=== PATIENT | male | born 1955 | race Caucasian/White ===

== ENCOUNTER 2016-12-06 18:05 | Emergency (ER) | payer OTHER ==
[~2016-12-06] VITALS: Ht 195.6 cm; Wt 113.6 kg
[~2016-12-06 18:05] MED LIST: ACETAMINOPHN-T1 EACH PO; CLARITIN,ALAVAR10 MG PO; CLARITIN10 M3 PO; CLARITIN10 MG PO; COUMADIN1 MG PO; COUMADIN5 MG PO; COUMADIN7.5 MG PO; CRESTOR40 MG PO; CYMBALTA30 MG PO; Claritin,Alavart PO; Coumadin Protocol PO; DILAUDID2 MG PO; DOCUSATE SODIU100 MG PO; DULOXETINE HCL30 MG PO; FENOFIBRATE160 M1 PO; FLONASE16 G1 BOTH NARES; Feosol PO; Fioricet,Esgic,Repan PO; IRON325 M1 PO; LASIX; LIPITOR20 MG PO; LOVENOX100 MG/1 M SC; LOVENOX40 MG/0.4 SC; Lovenox SC; OSTEO BI-FLEX1 EAC1 PO; OTC ALLERGY MED; OXYCODONE HCL5 MG PO; PERCOCET 5/31 TABLET PO; Percocet 5/325,Endoc PO; ROXICODONE5 MG PO; TAMSULOSIN HCL0.4 MG PO; TRAMADOL HCL50 MG PO; TYLENOL EXTRA500 MG PO; TYLENOL WITH C1 EACH PO; URIBEL CAPSULE1 EACH PO; WARFARIN SODIU7.5 MG PO; WARFARIN SODIUM10 MG PO; WARFARIN SODIUM2 MG PO; WARFARIN SODIUM5 MG PO; XARELTO20 MG PO; ZETIA10 MG PO; ZYRTEC10 M2 PO
[2016-12-06 18:40] LABS: HEMATOCRIT 40.6 % (38.0-50.0); MCH 29.9 PG (29.0-34.0); MCHC 34.7 G/DL (30.0-36.0); MEAN PLAT.VOLUME 9.8 uM^3 (9.0-12.4); PLATELET COUNT 299 K/uL (156-360); RBC DIS.WIDTH-CV 13.2 % (11.8-14.6); RBC DIS.WIDTH-SD 40.8 % (39-53); RED BLOOD COUNT 4.72 M/uL (4.00-5.50); WHITE BLOOD COUNT 5.7 K/uL (4.1-10.2)
[2016-12-06 19:03] LABS: CHLORIDE 108 mEq/L (99-109); POTASSIUM 3.9 mEq/L (3.7-5.4); SODIUM 139 mEq/L (136-147)
[2016-12-06 19:05] LABS: GLUCOSE 113 mg/dL (70-99); TROP-I INTERPRETATION NEGATIVE; TROPONIN-I < 0.01 ng/mL (0.0-0.30)
[2016-12-06 19:06] LABS: ANION GAP 12 MEQ/L (2-14)
[2016-12-06 19:08] LABS: GFR ESTIMATE (CALCULATED) > 59 mL/min/
[2016-12-06 19:09] LABS: UREA NITROGEN (BUN) 13 mg/dL (9-23)
[2016-12-06 21:33] LABS: TROP-I INTERPRETATION NEGATIVE; TROPONIN-I < 0.01 ng/mL (0.0-0.30)
[2016-12-06 22:35] VITALS: BP 129/73
== END 2016-12-06 22:36 | disposition home or self-care (01) ==
LOC: EME 18:05
PROVIDERS: Emergency Medicine
DX: R07.9 Chest pain, unspecified (principal); I71.2 Thoracic aortic aneurysm, without rupture; M54.5 Low back pain; Z73.3 Stress, not elsewhere classified; R05 Cough; R06.02 Shortness of breath; R11.0 Nausea; D68.51 Activated protein C resistance; E78.5 Hyperlipidemia, unspecified; Z79.01 Long term (current) use of anticoagulants; Z87.442 Personal history of urinary calculi
CPT/HCPCS: 71020; 71275; 80048; 84484; 85027; 93005; 99281; 99285; J7030

== ENCOUNTER 2017-03-27 09:03 | Emergency (ER) | payer OTHER ==
[~2017-03-27] VITALS: Ht 198.1 cm; Wt 116.8 kg
[2017-03-27 12:29] VITALS: BP 121/67
== END 2017-03-27 12:29 | disposition home or self-care (01) ==
LOC: EME 09:03
DX: M25.552 Pain in left hip (principal); M79.605 Pain in left leg; Z86.718 Personal history of other venous thrombosis and embolism; E78.5 Hyperlipidemia, unspecified; G43.909 Migraine, unspecified, not intractable, without status migrainosus; Z86.73 Personal history of transient ischemic attack (TIA), and cerebral infarction without residual deficits; Z96.641 Presence of right artificial hip joint; D68.2 Hereditary deficiency of other clotting factors; Z79.01 Long term (current) use of anticoagulants
CPT/HCPCS: 73502; 93971; 99281; 99284

== ENCOUNTER 2017-07-19 13:32 | Inpatient (IN) | payer OTHER ==
[~2017-07-19] VITALS: Ht 195.6 cm; Wt 166.3 kg
[2017-07-19 18:47] LABS: HEMATOCRIT 41.6 % (38.0-50.0); MCH 29.8 PG (29.0-34.0); MCHC 33.4 G/DL (30.0-36.0); MCV 89.1 FL (86-99); MEAN PLAT.VOLUME 9.6 uM^3 (9.0-12.4); PLATELET COUNT 256 K/uL (156-360); RBC DIS.WIDTH-CV 13.1 % (11.8-14.6); RBC DIS.WIDTH-SD 42.7 % (39-53); RED BLOOD COUNT 4.67 M/uL (4.00-5.50); WHITE BLOOD COUNT 11.1 K/uL (4.1-10.2)
[2017-07-19 18:56] LABS: INTER. NORMALIZED RATIO 1.8; PROTHROMBIN TIME 20.6 SEC (10.2-12.9)
[2017-07-19 18:59] LABS: CHLORIDE 107 mEq/L (99-109); POTASSIUM 4.4 mEq/L (3.7-5.4); PTT 38.4 SEC (25-37); SODIUM 139 mEq/L (136-147)
[2017-07-19 19:01] LABS: GLUCOSE 103 mg/dL (70-99)
[2017-07-19 19:02] LABS: ANION GAP 11 MEQ/L (2-14)
[2017-07-19 19:05] LABS: GFR ESTIMATE (CALCULATED) > 59 mL/min/
[2017-07-19 19:06] LABS: UREA NITROGEN (BUN) 12 mg/dL (9-23)
[2017-07-19 19:11] LABS: TROP-I INTERPRETATION NEGATIVE; TROPONIN-I < 0.01 ng/mL (0.0-0.30)
[2017-07-19] MEDS ORDERED: ICY HOT PATCH1 PATCH TD (20:32)
[2017-07-19] MEDS ORDERED: VENTOLIN HFA18 GM IH (20:33)
[2017-07-19] MEDS ORDERED: AMOXICILLIN500 MG PO (20:34)
[2017-07-19 22:02] LABS: TOTAL BILIRUBIN 0.6 mg/dL (0.0-1.0)
[2017-07-19 22:03] LABS: ALKALINE PHOSPHATASE 62 IU/L (3-129)
[2017-07-19 22:06] LABS: DIRECT BILIRUBIN 0.3 mg/dL (0.0-0.3)
[2017-07-19 22:42] LABS: Estimated Average Glucose 120 mg/dL (70-123); HEMOGLOBIN A1c (GLYCOHEMOGLOB) 5.8 % HGB (Below 5.7)
[2017-07-19 23:25] LABS: HDL CHOLESTEROL 31 MG/DL (Desirable>=40); LDL CHOLESTEROL 99 mg/dL (Desirable<100); NON-HDL CHOLESTEROL 116 mg/dL (Desirable<160); TOTAL CHOLESTEROL 147 mg/dL (Desirable<200); TRIGLYCERIDES 86 MG/DL (Normal: <150)
[2017-07-19 23:31] VITALS: BP 129/64
[2017-07-20 01:37] LABS: TROP-I INTERPRETATION NEGATIVE; TROPONIN-I < 0.01 ng/mL (0.0-0.30)
[2017-07-20 03:09] LABS: ADD MIUA? YES; BILIRUBIN NEGATIVE; BLOOD MODERATE; COLOR YELLOW ((YELLOW)); GLUCOSE (STRIP) NEGATIVE; KETONES NEGATIVE; LEUKOCYTES NEGATIVE; NITRITE NEGATIVE; PROTEIN (STRIP) NEGATIVE; SPECIFIC GRAVITY 1.024 (1.000-1.030); UROBILINOGEN 0.2 MG/DL (0.2-1.0)
[2017-07-20 03:11] LABS: INFLUENZA A VIRAL ANTIGEN NEGATIVE; INFLUENZA B VIRAL ANTIGEN NEGATIVE
[2017-07-20 03:19] LABS: BACTERIA NONE SEEN /HPF; EPITHELIAL CELLS NONE SEEN /HPF; MUCUS TRACE /LPF; RED BLOOD CELLS 0-5 /HPF (0-5); WHITE BLOOD CELLS 0-5 /HPF (0-5)
[2017-07-20 04:36] VITALS: BP 128/73
[2017-07-20 05:16] LABS: HEMATOCRIT 37.1 % (38.0-50.0); MCH 30.1 PG (29.0-34.0); MCHC 33.2 G/DL (30.0-36.0); MCV 90.7 FL (86-99); MEAN PLAT.VOLUME 9.5 uM^3 (9.0-12.4); PLATELET COUNT 221 K/uL (156-360); RBC DIS.WIDTH-CV 13.2 % (11.8-14.6); RBC DIS.WIDTH-SD 44.1 % (39-53); RED BLOOD COUNT 4.09 M/uL (4.00-5.50); WHITE BLOOD COUNT 9.8 K/uL (4.1-10.2)
[2017-07-20 05:45] LABS: ALKALINE PHOSPHATASE 43 IU/L (3-129); ANION GAP 10 MEQ/L (2-14); CHLORIDE 106 MEQ/L (99-109); GFR ESTIMATE (CALCULATED) > 59 mL/min/; GLUCOSE 99 mg/dL (70-99); POTASSIUM 4.4 MEQ/L (3.7-5.4); SAMPLE HEMOLYSIS CHECK 0; SAMPLE ICTERIC CHECK 0; SAMPLE LIPEMIA CHECK 0; SODIUM 140 MEQ/L (136-147); TOTAL BILIRUBIN 0.7 MG/DL (0.0-1.0); UREA NITROGEN (BUN) 16 mg/dL (9-23)
[2017-07-20 05:54] LABS: TROP-I INTERPRETATION NEGATIVE; TROPONIN-I < 0.01 ng/mL (0.0-0.30)
[2017-07-20 07:48] VITALS: BP 147/71
[2017-07-20 11:01] VITALS: BP 153/73
[2017-07-20 12:52] VITALS: BP 145/71
[2017-07-20 12:59] LABS: LYME DISEASE SEROLOGY SCREEN NEGATIVE (NEGATIVE)
[2017-07-20 16:02] VITALS: BP 151/68
[2017-07-20 19:10] VITALS: BP 125/78
[2017-07-20 19:46] LABS: HEMATOCRIT 37.5 % (38.0-50.0); MCHC 33.9 G/DL (30.0-36.0); MCV 88.4 FL (86-99); PLATELET COUNT 243 K/uL (156-360); RBC DIS.WIDTH-CV 13.2 % (11.8-14.6); RBC DIS.WIDTH-SD 42.3 % (39-53); RED BLOOD COUNT 4.24 M/uL (4.00-5.50); WHITE BLOOD COUNT 11.8 K/uL (4.1-10.2)
[2017-07-20 19:51] LABS: CHLORIDE 105 mEq/L (99-109); POTASSIUM 3.8 mEq/L (3.7-5.4); SODIUM 136 mEq/L (136-147)
[2017-07-20 19:52] LABS: GLUCOSE 116 mg/dL (70-99)
[2017-07-20 19:54] LABS: ANION GAP 11 MEQ/L (2-14)
[2017-07-20 19:56] LABS: GFR ESTIMATE (CALCULATED) > 59 mL/min/
[2017-07-20 19:57] LABS: UREA NITROGEN (BUN) 14 mg/dL (9-23)
[2017-07-20 20:04] LABS: TROP-I INTERPRETATION NEGATIVE; TROPONIN-I < 0.01 ng/mL (0.0-0.30)
[2017-07-21] VITALS (8 sets, daily range): BP systolic 132–162; BP diastolic 65–85
[2017-07-21 06:11] LABS: HEMATOCRIT 36.1 % (38.0-50.0); MCH 29.6 PG (29.0-34.0); MCHC 32.7 G/DL (30.0-36.0); MCV 90.5 FL (86-99); MEAN PLAT.VOLUME 10.3 uM^3 (9.0-12.4); PLATELET COUNT 221 K/uL (156-360); RBC DIS.WIDTH-SD 43.3 % (39-53); RED BLOOD COUNT 3.99 M/uL (4.00-5.50); WHITE BLOOD COUNT 11.1 K/uL (4.1-10.2)
[2017-07-21 06:32] LABS: BASE EXCESS -2.2 mEq/L (-3 to +3); BICARBONATE 24.2 mEq/L (22-26); COMMENTS - BLOOD GASES C+; DEVICE NRBM; FI02 100 %; METHEMOGLOBIN 1.8 % (0-1.5); PCO2 47 mm Hg (35-45); PO2 159 mm Hg (80-100); SITE RR; pH 7.32 (7.35-7.45)
[2017-07-21 06:58] LABS: INTER. NORMALIZED RATIO 1.2; PROTHROMBIN TIME 13.4 SEC (10.2-12.9)
[2017-07-21 07:01] LABS: PTT 31.5 SEC (25-37)
[2017-07-21 08:22] LABS: METH RESISTANT S AUREUS PCR NEGATIVE (NEGATIVE)
[2017-07-21 08:29] LABS: PROBE CHECK PASS; SPECIMEN PROCESSING CONTROL PASS
== END 2017-07-21 13:00 | disposition short-term general hospital (02) | DRG 97 ==
LOC: EME 13:32 → EDOF 22:15 → 5WEST 22:15 → ENRESERV 22:16 → 5WEST 23:17 → 4WEST 07-20 10:28 → 5WEST 07-20 10:28 → 4EAST 07-20 10:28 → 5WEST 07-20 10:28 → CANRESERV 07-20 10:33 → ENRESERV 07-20 10:33 → 5WEST 07-20 13:24 → ENRESERV 07-20 13:32 → 4EAST 07-20 15:24 → ENRESERV 07-21 06:37 → 4WEST 07-21 06:45
PROVIDERS: Emergency Medicine; Hospitalist; Internal Medicine; Nurse Practitioner Adult Health; Specialist
PROC: 5A1935Z Respiratory Ventilation, Less than 24 Consecutive Hours (ICD-10-PCS; principal; 2017-07-21)
PROC: 0BH17EZ Insertion of Endotracheal Airway into Trachea, Via Natural or Artificial Opening (ICD-10-PCS; principal; 2017-07-21)
DX: G03.9 Meningitis, unspecified (principal); J96.01 Acute respiratory failure with hypoxia; D68.2 Hereditary deficiency of other clotting factors; R56.9 Unspecified convulsions; I71.2 Thoracic aortic aneurysm, without rupture; D68.59 Other primary thrombophilia; D68.51 Activated protein C resistance; G45.9 Transient cerebral ischemic attack, unspecified; R51 Headache; Z86.718 Personal history of other venous thrombosis and embolism; E78.5 Hyperlipidemia, unspecified; Z87.442 Personal history of urinary calculi; R47.81 Slurred speech; R25.3 Fasciculation; Z96.643 Presence of artificial hip joint, bilateral; R40.2430 Glasgow coma scale score 3-8, unspecified time; K57.30 Diverticulosis of large intestine without perforation or abscess without bleeding; N28.1 Cyst of kidney, acquired; I49.3 Ventricular premature depolarization; R32 Unspecified urinary incontinence; R27.0 Ataxia, unspecified; G43.909 Migraine, unspecified, not intractable, without status migrainosus; Z79.01 Long term (current) use of anticoagulants; R41.82 Altered mental status, unspecified; D71 Functional disorders of polymorphonuclear neutrophils; J45.909 Unspecified asthma, uncomplicated; K59.00 Constipation, unspecified; N20.0 Calculus of kidney; R33.9 Retention of urine, unspecified; Z68.33 Body mass index [BMI] 33.0-33.9, adult; Z79.899 Other long term (current) drug therapy; Z80.1 Family history of malignant neoplasm of trachea, bronchus and lung; Z80.7 Family history of other malignant neoplasms of lymphoid, hematopoietic and related tissues; Z86.73 Personal history of transient ischemic attack (TIA), and cerebral infarction without residual deficits; R50.9 Fever, unspecified
CPT/HCPCS: 36600; 70450; 70551; 71010; 74176; 80048; 80048 91; 80053; 80061; 80076; 80202; 81003; 82803; 82948; 83036; 83605; 83735; 84146; 84484; 85027; 85379; 85610; 85730; 86618; 87040; 87070; 87205; 87502; 87641; 87651 90; 89051; 93005; 93880; 94002; 99281; 99285; G0378; J0131; J0133; J0696; J1200; J1885; J1953; J2060; J2270; J2405; J2765; J3370; J7030; J7050; S0028